=== PATIENT | male | born 2000 | race Caucasian/White ===

== ENCOUNTER 2021-03-08 11:54 | Emergency (ER) | payer OTHER ==
[~2021-03-08] VITALS: Ht 182.9 cm; Wt 115.2 kg
[~2021-03-08 11:54] MED LIST: ALBUTEROL INH; CELEXA10 MG PO; PULMICORT FLEX90 MCG IH; STRATTERA80 MG PO
[2021-03-08 13:10] VITALS: BP 124/70
[2021-03-08] MEDS ORDERED: HYDROCODON-ACE1 EAC7 PO (13:10)
== END 2021-03-08 13:10 | disposition home or self-care (01) ==
LOC: M.ERS 11:54
DX: S40.012A Contusion of left shoulder, initial encounter (principal); J45.909 Unspecified asthma, uncomplicated; F41.9 Anxiety disorder, unspecified; V29.9XXA Motorcycle rider (driver) (passenger) injured in unspecified traffic accident, initial encounter; Y93.89 Activity, other specified; Y92.89 Other specified places as the place of occurrence of the external cause; Y99.8 Other external cause status